=== PATIENT | female | born 1970 | race Caucasian/White ===

== ENCOUNTER 2016-11-22 12:53 | Emergency (ER) | payer OTHER ==
[~2016-11-22] VITALS: Ht 162.6 cm; Wt 113.0 kg
[~2016-11-22 12:53] MED LIST: ALBUTEROL SULF8.5 GM IH; ASPIR-TRIN325 M1 PO; ASPIRIN81 M2 PO; Bactrim,Septra DS 80 PO; Dilaudid PO; HYCODAN SYRUP480 ML PO; NAPROXEN500 MG PO; NOHOMEMEDS; PREDNISONE20 MG PO; PREDNISONE50 MG PO; PROAIR HFA8.5 GM IH; TESSALON PERLE100 MG PO; TESSALON200 MG PO; VOLTAREN25 MG PO; ZOFRAN ODT4 MG PO
[2016-11-22] MEDS ORDERED: MOBIC7.5 MG PO (15:50)
[2016-11-22 16:06] VITALS: BP 129/68
== END 2016-11-22 16:17 | disposition home or self-care (01) ==
LOC: RME 12:53 → EME 12:53 → RME 16:17
DX: M25.561 Pain in right knee (principal); Z88.6 Allergy status to analgesic agent
CPT/HCPCS: 73564; 99281; 99284

== ENCOUNTER 2017-06-12 10:46 | Emergency (ER) | payer OTHER ==
[~2017-06-12] VITALS: Ht 165.1 cm; Wt 121.3 kg
[~2017-06-12 10:46] MED LIST changes: +MOBIC7.5 MG PO
[2017-06-12] MEDS ORDERED: NORCO 7.5/321 TABLET PO (14:37)
[2017-06-12] MEDS ORDERED: MOTRIN800 MG PO (14:37)
[2017-06-12 15:02] VITALS: BP 111/76
== END 2017-06-12 15:03 | disposition home or self-care (01) ==
LOC: EME 10:46
DX: M25.512 Pain in left shoulder (principal); S46.002A Unspecified injury of muscle(s) and tendon(s) of the rotator cuff of left shoulder, initial encounter; K21.9 Gastro-esophageal reflux disease without esophagitis; Z87.891 Personal history of nicotine dependence
CPT/HCPCS: 99281; 99284